=== PATIENT | female | born 1950 | race African-American/Black ===

== ENCOUNTER → 2017-04-17 | Outpatient (CLI) | payer MEDICARE, OTHER ==
[~2017-04-17] MED LIST: AMLO2.5T45 PO; AMOX125S8 PO; CLAR500T PO; DOCU-138 PO; FOLI-43; LEVO75TA7 PO; LISI1TAB9 PO; METH-612 PO; NIAC500T76; OMEG1CAP28 PO; OMEP20TA2 PO; POLY50DR OP; SIME80TA5 PO; UBID1CAP47 PO
[2017-04-17 13:15] LABS: EOSINOPHILS % 1.7 % (0.0-5.0); HEMATOCRIT. 32.8 % (36.0-48.0); HEMOGLOBIN. 10.6 g/dL (12.0-16.0); LYMPHOCYTES % 14.5 % (20.0-50.0); MEAN CORPUSCULAR HEMOGLOBIN 27.8 pg (28.0-32.0); MEAN CORPUSCULAR VOLUME 85.6 fL (81.0-99.0); MEAN PLATELET VOLUME 6.8 fl (7.4-10.4); MONOCYTES % 11.1 % (2.0-8.0); NEUTROPHILS % 71.7 % (40.0-76.0); PLATELET 265 x1000/uL (130-400); RED BLOOD CELL COUNT 3.83 mill/uL (4.2-5.4); RED CELL DISTRIBUTION WIDTH 14.2 % (11.6-14.6)
== END | disposition home or self-care (01) ==
LOC: LAB 12:32
PROVIDERS: ATTEND Ophthalmology
DX: H02.534 Eyelid retraction left upper eyelid (principal); H02.531 Eyelid retraction right upper eyelid
CPT/HCPCS: 36415; 80048; 85025

== ENCOUNTER 2017-04-23 10:06 | Day surgery (SDC) | payer MEDICARE, OTHER ==
[~2017-04-23] VITALS: Ht 156.2 cm; Wt 86.2 kg
[2017-04-23] MEDS ORDERED: SODIUM CHLORIDE 0.9% 1,000 ML IV SCH ×2 (12:00→15:15)
[2017-04-23] MEDS ORDERED: PREDNISOLONE ACETATE 1% OPHTH DROPS 1ML ONE (14:23)
[2017-04-23] MEDS ORDERED: CIPROFLOXACIN 0.3% OPHTH SOLN 2.5ML ONE (14:23)
[2017-04-23] MEDS ORDERED: BUPIVACAINE HCL/PF 0.75% (7.5MG/ML) 10ML ONE (14:23)
[2017-04-23] MEDS ORDERED: LIDOCAINE HCL 2%/EPINEPHRINE 1:100,000 20 ML VIAL INFIL ONE (14:23)
[2017-04-23] MEDS ORDERED: TETRACAINE 0.5% OPHTH DROPS 4ML ONE (14:23)
[2017-04-23] MEDS ORDERED: BALANCED SALT IRRIG SOLN 15ML ONE (14:23)
[2017-04-23] MEDS ORDERED: FENTANYL CITRATE/PF 50MCG/ML 2ML VIAL ONE (14:55)
[2017-04-23] MEDS ORDERED: LIDOCAINE HCL 1% 20ML VIAL (Pyxis) INJ ONE (14:56)
[2017-04-23] MEDS ORDERED: PROPOFOL 200MG/20ML VIAL IV ONE ×2 (14:56→15:50)
[2017-04-23] MEDS ORDERED: ONDANSETRON HCL 4MG/2ML VIAL IV PRN (15:00)
[2017-04-23] MEDS ORDERED: MORPHINE SULFATE 2 MG/ML CPJ (NOT FOR IM USE) IV PRN (15:00)
[2017-04-23] MEDS ORDERED: CEFAZOLIN SODIUM 1000MG/VIAL ONE (15:23)
[2017-04-23] MEDS ORDERED: ERYTHROMYCIN BASE 0.5% OPHTH OINT 3.5GM OP NR (15:27)
== END 2017-04-23 17:30 | disposition home or self-care (01) ==
LOC: OR 10:06
PROVIDERS: ATTEND Ophthalmology
DX: H02.0 Entropion and trichiasis of eyelid (principal); H02.006 Unspecified entropion of left eye, unspecified eyelid; E66.01 Morbid (severe) obesity due to excess calories; G47.30 Sleep apnea, unspecified; K21.9 Gastro-esophageal reflux disease without esophagitis; I10 Essential (primary) hypertension; E03.9 Hypothyroidism, unspecified; D64.9 Anemia, unspecified; Z88.2 Allergy status to sulfonamides; Z85.118 Personal history of other malignant neoplasm of bronchus and lung
CPT/HCPCS: 67924; J0690; J3010; J3490; J7030; J2704